=== PATIENT | female | born 2000 | race Caucasian/White ===

== ENCOUNTER 2019-07-13 00:12 | Day surgery (SDC) | payer OTHER, SELFPAY ==
[2019-07-03 10:08] VITALS: BMI 25.1
--- NOTE | 2019-07-11 09:42 | PM.IMHP ---
H&P: HPI History of Present Illness Chief complaint: Irregular Bleeding, Uterine Polyp Narrative: Kyung Merritt is a 19 year old female who is admitted for hysteroscopy dilatation curettage and possible polypectomy. She claims some irregular bleeding. She underwent an ultrasound which showed a thickened area with urine peristalsis appears to be a polyp. Remainder of the exam was unremarkable. Risks and benefits were reviewed full of procedure Review of Systems Review of Systems: All systems reviewed & are unremarkable except as noted in HPI and below Meds Home Medications and Allergies Home Medications Medication Instructions Recorded Confirmed Type No Home Medications 07/03/19 07/03/19 History Allergies Allergy/AdvReac Type Severity Reaction Status Date / Time Sulfa (Sulfonamide Allergy Rash Verified 07/03/19 10:08 Antibiotics) Exam Const: General: no acute distress Eyes: General: appearance normal, both eyes and all related structures Neck: Neck: supple and no JVD Thyroid: thyroid normal Resp: Effort & Inspection: normal respiratory effort Auscultation: clear to auscultation bilaterally Cardio: Rate: regular rate Rhythm: regular rhythm GI: Inspection: non-distended GI Palp: Yes Soft to palpation, No Tenderness to palpation present (GI) and No Guarding due to palpation present (GI) Auscultation: normal bowel sounds : General: Yes bladder normal to palpation External Female Exam: normal external appearance Speculum Exam - Vagina: normal vaginal discharge and No vaginal bleeding Speculum Exam - Cervix: nontender Bimanual exam- vagina & uterus: bladder normal to palpation and No Cervical tenderness present OB/external & speculum: No vaginal bleeding Skin: General skin exam: no rashes or lesions noted Extrem: General: normal to inspection and no edema Psych: Mental Status: mental status grossly normal Affect: normal affect Assessment and Plan Additional Plan impression: Bleeding with suspected polyp Plan: Hysteroscopy, dilatation curettage, possible polypectomy.
--- NOTE | 2019-07-13 06:57 | WPDHPUPDATE1 ---
History and Physical Update Update Date/Time: 07/13/19 06:57 History and Physical has been reviewed, including an updated exam of the patient. There are NO changes in the patient's condition. Risks, benefits, and alternatives have been discussed and questions answered. Patient agrees to proceed with procedure.
[2019-07-13] MEDS: LACTATED RINGERS 1,000 ML 30 ML IV CONT (09:05)
--- NOTE | 2019-07-13 09:08 | P.PNAN_ITS ---
Anes - Initial Pre Proc Eval Procedure: Operation Date: 07/13/19 10:30 Proposed Procedures p Hysteroscopy, Dilation and Curettage, Possible Polypectomy - Tenzin Rashid MD Date/Time: 07/13/19 09:08 Surgeon: Tenzin Puente MD Pre Op Diagnosis: Irregular Bleeding, Uterine Polyp Patient Data Age: 19 Gender: F Height: 1.75 m Weight: 77.11 kg Allergies Allergy/AdvReac Type Severity Reaction Status Date / Time Sulfa (Sulfonamide Allergy Rash Verified 07/03/19 10:08 Antibiotics) Home Medications Medication Instructions Recorded Confirmed Type hydrocodone-acetaminophen [[place]] 1 tablet PO Q4H PRN #20 tablet 07/13/19 Rx Patient hx anesthesia problems: none Family hx anesthesia problems: none Anes - Eval Final PreProcedure Day of Procedure 07/13/19 09:08 Patient weight: normal Heart: regular rate and rhythm Lungs: clear to auscultation and normal air movement Airway: Mallampati scale class II Neurological: alert and oriented Last oral intake: >/= 8 hours ASA classification: I Emergent: no Anesthetic plan: proceed Anesthesia type and monitoring: general GIVS Informed Consent: The patient's anesthetic plan and its attendant risks and benefits were discussed with the patient/family/POA. Questions were solicited and answers provided to the satisfaction of the patient/family/POA.
[2019-07-13 09:10] VITALS: BP 130/83; PULSE 89; RESP 16; TEMP 36.4; O2SAT 100
[2019-07-13] MEDS: IBUPROFEN IV 800 MG/200 ML 800 MG/200 ML BAG 400 MG IVPB (10:03)
--- NOTE | 2019-07-13 10:22 | PM.PROC ---
Procedure Note - Detailed Date of procedure: 07/13/19 Pre-op diagnosis: Irregular Bleeding, Uterine Polyp Surgeon: Tenzin Puente MD Postop diagnosis: Irregular bleeding thickened endometrium Procedure: Hysteroscopy, dilatation curettage EBL: 5cc Findings: Thickened irregular uterine tissue normal-appearing fallopian tube ostia bilaterally Complications Description of procedure: Patient was prepped and draped in the normal sterile fashion placed in the dorsal lithotomy position. Under excellent IV sedation weighted speculum was placed in posterior fornix of vagina. And the anterior lip of the cervix was grasped with a single-tooth tenaculum. 2.5cc 1% xylocaine his seizure placed at 2, 4, 6, 8 o'clock of the cervix. Uterus sounded 8cm. Serial dilatation with fragmented dilators performed followed by passage of the 5mm visualizing hysteroscope. Normal saline was used as visualizing medium. Thickened irregular endometrial tissue was seen but no evidence of definitive polyp seen. The uterus was scraped over the entire 360? removing a moderate amount of tissue. When no further tissue removed a good grating sound was heard. Instruments removed. Patient was awakened. All sponge, needle, instrument counts were correct. There were no immediate complications
[2019-07-13 10:30] VITALS: BP 115/79; PULSE 65; RESP 12; O2SAT 98
[2019-07-13 10:54] VITALS: BP 110/71; PULSE 64; RESP 12
[2019-07-13 11:20] VITALS: BP 125/76; PULSE 67; RESP 16
== END 2019-07-13 11:25 | disposition home or self-care (01) ==
PROVIDERS: PCP Family Medicine; Visit Provider Obstetrics & Gynecology
PROC: 0U5B8ZZ Destruction of Endometrium, Via Natural or Artificial Opening Endoscopic (ICD-10-PCS; CPT 58563; principal; 2019-07-13 10:30)
DX: N92.6 Irregular menstruation, unspecified (principal); R93.89 Abnormal findings on diagnostic imaging of other specified body structures; Z88.2 Allergy status to sulfonamides
CPT/HCPCS: 58558; 88305; A9270; J1100; J1741; J2250; J2405; J2704; J3010; J7030; J7120